=== PATIENT | male | born 1960 | race Caucasian/White ===

== ENCOUNTER 2018-03-20 07:18 | Outpatient (CLI) | payer OTHER | END 2018-03-20 07:19 | disposition home or self-care (01) | LOC: BICMRI 07:18 | PROVIDERS: ATTEND Family Medicine | DX: M47.896 Other spondylosis, lumbar region (principal); M51.26 Other intervertebral disc displacement, lumbar region; G58.8 Other specified mononeuropathies; M48.061 Spinal stenosis, lumbar region without neurogenic claudication; M99.83 Other biomechanical lesions of lumbar region; M43.17 Spondylolisthesis, lumbosacral region | CPT/HCPCS: 72148 ==